=== PATIENT | male | born 1945 | race Caucasian/White ===

== ENCOUNTER → 2018-02-03 | Outpatient (CLI) | payer OTHER | LOC: FLAB 09:04 | PROVIDERS: ATTEND Internal Medicine | DX: Z51.81 Encounter for therapeutic drug level monitoring (principal); R07.9 Chest pain, unspecified; E03.9 Hypothyroidism, unspecified; D89.89 Other specified disorders involving the immune mechanism, not elsewhere classified ==

== ENCOUNTER → 2018-02-04 | Outpatient (CLI) | payer OTHER | LOC: CIMAGING 13:00 | PROVIDERS: ATTEND Internal Medicine | DX: R91.8 Other nonspecific abnormal finding of lung field (principal) | CPT/HCPCS: 71250-PO ==

== ENCOUNTER 2018-04-05 12:17 | Day surgery (SDC) | payer OTHER ==
--- NOTE | 2018-04-05 11:13 | PDPROPOC ---
Sedation Plan of Care Sedation Plan of Care: vital signs stable, mental status noted, patient educated of risks, benefits, alternatives, patient can tolerate sedation ASA Classification: ASA 2 Planned drugs: fentanyl, midazolam Mallampati Score: Class 2 Mallampati Reference Image: Patient passed 3-3-2 rule?: Yes
[~2018-04-05 12:17] MED LIST: ALBUTEROL 3 ML DEYVIAL ONE; BENZOCAINE UNIT DOSE SPRAY HURRICAINE MM ONE; EPINEPHrine 1 MG/ML INJ ONE; LIDOCAINE 1% 300 MG/30 ML SDV ONE; LIDOCAINE 2% JELLY 5 ML TUBE ONE
[2018-04-05] MEDS ORDERED: NS 500 ML IV ONE ×2 (12:38→13:30)
[2018-04-05] MEDS ORDERED: MIDAZOLAM 2 MG/2 ML VIAL ONE ×2 (13:10→13:44)
[2018-04-05] MEDS ORDERED: fentaNYL 100 MCG/2 ML INJ ONE (13:10)
--- NOTE | 2018-04-05 13:32 | PDHPUP ---
History & Physical Update H&P update statement: This history and physical update is based on an assessment of the patient which was completed after admission or registration (within 24 hours), but prior to the surgery/procedure. H&P update: H&P reviewed & patient examined, no change in patient's condition since H&P completed
--- NOTE | 2018-04-05 13:54 | POSTOPPROG ---
Post Op Note Date of Operation: 04/05/18 Surgeon: Kemal Rosales Anesthesia: IV Sedation Pre-op Diagnosis: Abnormal CT chest Post-op Diagnosis: same Indication: abnormal ct chest Procedure: bronchoscopy Findings: Normal airways Inf/Abcess present in the surg proc area at time of surgery?: No EBL: Minimal Specimen(s): BAL from RUL
--- NOTE | 2018-04-05 13:59 | BVPULMO ---
[facility] [place] [facility]- Pulmonology Patient Name: Richard Cheung Procedure Date: 04/05/2018 1:43 PM Patient Type: Outpatient Attending MD/ER Physician: Kemal Rosales MD Procedure: Bronchoscopy Indications: Infiltrate Providers: Kemal Rosales MD Medicines: Midazolam 7 mg IV, Fentanyl 175 mcg IV, Lidocaine 4% via nebulizer with Albuter ol 2.5 mg, Lidocaine 1% applied to cords 2 mL, Lidocaine 1% subglottic space 5 mL Complications: No immediate complications Procedure: After informed consent, a time out was performed. N95 masks were worn, and the procedure was done in a negative pressure room. The patient was given appropria te topical anesthesia and intravenous sedation. The fiberopic bronchoscope was pas sed via a bite block orally into the larynx and subsequently into the lower trachea bronchial tree. Throughout the procedure, the patient's blood pressure, pulse, and oxygen saturations were monitored continuously. The Bronchoscope was introduced through the mouth and advanced to the tracheobronchial tree of both lungs. The procedure was accomplished without difficulty. The patient tolerated the proced ure well. The total duration of the procedure was 20 minutes. Findings: The oropharynx appears normal. The larynx appears normal. The vocal cords appea r normal. The subglottic space is normal. The trachea is of normal caliber. The c ami is sharp. The tracheobronchial tree was examined to at least the first subsegme ntal level. Bronchial mucosa and anatomy are normal; there are no endobronchial lesi ons, and no secretions. Bronchoalveolar lavage was performed in the RUL apical segment (B1) of the lung and sent for cell count, bacterial culture, viral smears & culture, and fungal & AF B analysis and cytology and routine cytology. 60 mL of fluid were instilled. 40 m L were returned. The return was cloudy. There were no mucoid plugs in the return fluid. Post Op Diagnosis: - Infiltrate - The airway examination was normal. - Bronchoalveolar lavage was performed. - The airway examination was normal. Estimated Blood Loss: Estimated blood loss: none. Recommendation: - Await BAL results. - Follow up with bronchoscopist in 1 month. Attending Participation: I personally performed the entire procedure. Kemal Rosales MD Kemal Rosales MD 04/05/2018 1:58:55 PM This report has been signed electronicallyThomas MD Connie Number of Addenda: 0 Note Initiated On: 04/05/2018 1:43 PM [email or web address]
[2018-04-05 15:08] VITALS: BP 129/79
== END 2018-04-05 15:15 | disposition home or self-care (01) ==
LOC: FSGY 12:17
PROVIDERS: ATTEND Internal Medicine Pulmonary Disease
PROC: 0B948ZX Drainage of Right Upper Lobe Bronchus, Via Natural or Artificial Opening Endoscopic, Diagnostic (ICD-10-PCS; principal; 2018-04-05 13:15)
DX: R91.8 Other nonspecific abnormal finding of lung field (principal)
CPT/HCPCS: J0171; J2250; J3010; J7613

== ENCOUNTER → 2018-05-02 | Outpatient (CLI) | payer OTHER | LOC: CIMAGING 08:17 | PROVIDERS: ATTEND Internal Medicine Pulmonary Disease | DX: R91.8 Other nonspecific abnormal finding of lung field (principal); M51.36 Other intervertebral disc degeneration, lumbar region | CPT/HCPCS: 71250-PO ==

== ENCOUNTER → 2018-07-14 | Outpatient (CLI) | payer OTHER | LOC: CIMAGING 13:29 | PROVIDERS: ATTEND Internal Medicine Pulmonary Disease | DX: Z09 Encounter for follow-up examination after completed treatment for conditions other than malignant neoplasm (principal); R91.1 Solitary pulmonary nodule | CPT/HCPCS: 71250-PO ==

== ENCOUNTER → 2018-09-28 | Outpatient (CLI) | payer OTHER | LOC: CIMAGING 14:40 | PROVIDERS: ATTEND Internal Medicine | DX: I82.412 Acute embolism and thrombosis of left femoral vein (principal) | CPT/HCPCS: 93971-PO ==

== ENCOUNTER → 2018-12-20 | Outpatient (CLI) | payer OTHER | LOC: CIMAGING 07:23 | PROVIDERS: ATTEND Internal Medicine | DX: Z51.81 Encounter for therapeutic drug level monitoring (principal); I80.02 Phlebitis and thrombophlebitis of superficial vessels of left lower extremity; D68.51 Activated protein C resistance | CPT/HCPCS: 36415-PO; 93971-PO ==

== ENCOUNTER 2019-01-19 09:38 | Inpatient (IN) | payer OTHER | END 2019-01-21 10:43 | disposition home or self-care (01) | LOC: F3N 09:38 ==